=== PATIENT | male | born 1955 | race Caucasian/White ===

== ENCOUNTER 2022-01-02 11:04 | Observation (INO) | payer BC ==
[2022-01-02] MEDS ORDERED: NA CHLORIDE 0.9% 500 ML ONE (11:32)
[2022-01-02] MEDS ORDERED: METOPROLOL TARTRATE 5 MG/5 ML INJ IV ONE ×2 (11:32→15:50)
[2022-01-02 11:37] LABS: Absolute Lymphocytes (CBC) 2.7 K/uL (0.7-4.9); Hematocrit 40.9 % (39.6-49.0); Lymphocytes % 39.3 % (15.3-44.8); MPV 6.6 fL (7.6-11.3); RBC Red Blood Cell Count 4.89 M/uL (4.33-5.43)
[2022-01-02 11:48] LABS: Protime INR 0.97
[2022-01-02 11:58] LABS: Potassium 4.1 mmol/L (3.5-5.1); Troponin High Sensitivity 9.9 pg/mL (<58.9)
[2022-01-02] MEDS ORDERED: ENOXAPARIN 100 MG/ML SYR SQ ONE (12:03)
--- NOTE | 2022-01-02 12:05 | RAD REPORT ---
EXAM DESCRIPTION: Nikolas Single View01/02/2022 11:59 am CLINICAL HISTORY: Chest pain COMPARISON: none FINDINGS: The lungs appear clear of acute infiltrate. The heart is normal size IMPRESSION: No acute abnormalities displayed
--- NOTE | 2022-01-02 13:42 | EDPHYS ---
Physician Documentation [facility] Name: Deshawn Chavez Age: 66 yrs Sex: Male : 1955 Arrival Date: 01/02/2022 Time: 11:05 Bed 24 Private MD: Oumar Lieberman E ED Physician Charlie Wilson HPI: 01/02 11:26 This 66 yrs old Male presents to ER via Ambulatory with complaints of Chest Pain, pm1 Palpitations. 11:26 The patient or guardian reports chest pain that is located primarily in the mid-sternal pm1 area. Onset: yesterday. The pain does not radiate. Associated signs and symptoms: Pertinent positives: palpitations, shortness of breath. Duration: The patient or guardian reports a single episode, that is still ongoing. Modifying factors: The symptoms are alleviated by rest, the symptoms are aggravated by exertion. Severity of pain: in the emergency department the pain is unchanged. The patient has experienced a previous episode, approximately 30 years ago, and the symptoms today are exactly the same, as his diagnosis of atrial fibrillation. The patient has not recently seen a physician. Historical: - Allergies: 11:18 No Known Allergies; bp - Home Meds: 11:18 fenofibrate 40 mg oral tab 1 tab once daily [Active]; Coreg 12.5 mg Oral tab 1 tab 2 bp times per day [Active]; terazosin 5 mg oral cap 2 caps once daily [Active]; - PMHx: 11:18 Hypertensive disorder; Atrial fibrillation; bp - PSHx: 11:18 BACK SURGERY; bp - Immunization history:: Adult Immunizations up to date, Client reports having NOT received the Covid vaccine. - Social history:: Smoking status: Patient denies any tobacco usage or history of. Patient uses alcohol, occasionally. ROS: 11:26 Constitutional: Negative for fever, chills, and weight loss. pm1 11:26 Abdomen/GI: Negative for abdominal pain, nausea, vomiting, diarrhea, and constipation, Back: Negative for injury and pain, MS/Extremity: Negative for injury and deformity, Skin: Negative for injury, rash, and discoloration, Neuro: Negative for headache, weakness, numbness, tingling, and seizure. 11:26 Cardiovascular: Positive for chest pain, palpitations. 11:26 Respiratory: Positive for shortness of breath, on exertion. Negative for cough. 11:26 All other systems are negative. Exam: 11:26 Constitutional: This is a well developed, well nourished patient who is awake, alert, pm1 and in no acute distress. Head/Face: Normocephalic, atraumatic. 11:26 Skin: Warm, dry with normal turgor. Normal color with no rashes, no lesions, and no evidence of cellulitis. MS/ Extremity: Pulses equal, no cyanosis. Neurovascular intact. Full, normal range of motion. 11:26 Eyes: Exam is negative for acute changes, Extraocular movements: no acute changes. 11:26 ENT: Exam is negative for acute changes, Mouth: no acute changes, Lips: normal, moist, Oral mucosa: normal, pink and intact, moist. 11:26 Chest/axilla: Exam negative for acute changes, Inspection: normal, Palpation: no acute changes. 11:26 Cardiovascular: Rate: tachycardic, Rhythm: irregular, Pulses: no pulse deficits are appreciated, Heart sounds: normal, normal S1and S2, Edema: is not appreciated. 11:26 Respiratory: Exam negative for acute changes, the patient does not display signs of respiratory distress, Respirations: normal, Breath sounds: are clear throughout. 11:26 Neuro: Exam negative for acute changes, Orientation: is normal, Mentation: is normal, Motor: is normal, moves all fours. Vital Signs: 11:10 BP 152 / 87; Pulse 58; Resp 17; Temp 98; Pulse Ox 100% ; Weight 89.81 kg; Height 5 ft. bp 10 in. (177.80 cm); 12:31 BP 138 / 76; Pulse 85; Resp 17; Pulse Ox 99% ; bp 13:30 BP 148 / 97; Pulse 78; Resp 15; Pulse Ox 99% ; bp 14:30 BP 144 / 96; Pulse 97; Resp 20; Pulse Ox 100% ; bp 15:30 BP 136 / 97; Pulse 114; Resp 15; Pulse Ox 98% ; bp 11:10 Body Mass Index 28.41 (89.81 kg, 177.80 cm) bp MDM: 11:26 Patient medically screened. pm1 13:40 Data reviewed: vital signs. Data interpreted: Pulse oximetry: on room air is 99 %. pm1 Interpretation: normal. Counseling: I had a detailed discussion with the patient and/or guardian regarding: the historical points, exam findings, and any diagnostic results supporting the discharge/admit diagnosis, lab results, radiology results, the need for further work-up and treatment in the hospital. 01/02 11:21 Order name: Basic Metabolic Panel; Complete Time: 12:00 bp 01/02 11:21 Order name: CBC with Diff; Complete Time: 12:00 bp 01/02 11:21 Order name: PT-INR; Complete Time: 12:00 bp 01/02 11:21 Order name: Troponin HS; Complete Time: 12:00 bp 01/02 13:44 Order name: COVID-19 SARS RT PCR (Document "Date of Onset" if Symptomatic); Complete pm1 Time: 17:52 01/02 15:59 Order name: Magnesium EDAR 01/02 11:23 Order name: XRAY Chest (1 view); Complete Time: 12:07 pm1 01/02 15:59 Order name: Echo with Doppler EDMS 01/02 15:59 Order name: NT PRO-BNP EDAR 01/02 15:59 Order name: Phosphorus EDMS 01/02 15:59 Order name: T4 Free EDMS 01/02 15:59 Order name: Thyroid Stimulating Hormone EDMS 01/02 15:59 Order name: Urinalysis EDMS 01/02 15:59 Order name: Basic Metabolic Panel EDMS 01/02 15:59 Order name: Basic Metabolic Panel EDMS 01/02 15:59 Order name: CBC with Automated Diff EDMS 01/02 15:59 Order name: CBC with Automated Diff EDMS 01/02 15:59 Order name: Protime (+INR) EDMS 01/02 15:59 Order name: Protime (+INR) EDMS 01/02 11:21 Order name: EKG; Complete Time: 11:22 bp 01/02 11:21 Order name: Cardiac monitoring; Complete Time: 11:22 bp 01/02 11:21 Order name: EKG - Nurse/Tech; Complete Time: 11:22 bp 01/02 11:21 Order name: IV Saline Lock; Complete Time: 11:33 bp 01/02 11:21 Order name: Labs collected and sent; Complete Time: 11:33 bp 01/02 11:21 Order name: O2 Per Protocol; Complete Time: 11:22 bp 01/02 11:21 Order name: O2 Sat Monitoring; Complete Time: 11:21 bp 01/02 11:23 Order name: EKG; Complete Time: 11:24 pm1 01/02 11:23 Order name: Cardiac monitoring; Complete Time: 11:33 pm1 01/02 11:23 Order name: EKG - Nurse/Tech; Complete Time: 11:33 pm1 01/02 11:23 Order name: IV Saline Lock; Complete Time: 11:33 pm1 01/02 11:23 Order name: Labs collected and sent; Complete Time: 11:33 pm1 01/02 11:23 Order name: O2 Per Protocol; Complete Time: 11:33 pm1 01/02 11:23 Order name: O2 Sat Monitoring; Complete Time: 11:33 pm1 01/02 15:52 Order name: CONS Physician Consult EDAR 01/02 15:59 Order name: Heart Healthy EDMS Administered Medications: 11:30 Drug: NS 0.9% 500 ml Route: IV; Rate: bolus; Site: right forearm; bp 11:30 Drug: Metoprolol 5 mg Route: IVP; Site: right forearm; bp 11:53 Follow up: Response: No adverse reaction; Marked relief of symptoms bp 11:59 Drug: Lovenox (enoxaparin) 1 mg/kg Route: Sub-Q; Site: right lower abdomen; bp 14:32 Follow up: Response: No adverse reaction bp 15:47 Drug: Metoprolol 25 mg Route: PO; bp 15:47 Drug: Metoprolol 5 mg Route: IVP; Site: right antecubital; bp Disposition: 01/03 14:40 Co-signature as Attending Physician, Charlie Wilson MD. rn Disposition Summary: 01/02/22 13:41 Hospitalization Ordered Hospitalization Status: Observation pm1 Condition: Stable pm1 Problem: new pm1 Symptoms: have improved pm1 Bed/Room Type: Standard pm1 Provider: Fernando Rob(01/02/22 14:39) pm1 Location: Telemetry/MedSurg (observation)(01/02/22 18:43) ja1 Room Assignment: 210(01/02/22 18:43) ja1 Diagnosis - Chest pain, unspecified pm1 - Unspecified atrial fibrillation pm1 Forms: - Medication Reconciliation Form pm1 - SBAR form pm1 Signatures: Dispatcher [employer] EDAR Charlie Wilson MD MD rn Konrad Mxawell, BLACKTOP SPREADER BLACKTOP SPREADER pm1 Rob Saucedo, SHANA RN ja1 Michoacano Lindo, RN RN bp Corrections: (The following items were deleted from the chart) 01/02 11:27 11:22 Chest Single View+RAD.RAD.BRZ ordered. EDMS EDMS 11:55 11:24 BASIC METABOLIC PANEL+C.LAB.BRZ ordered. EDMS EDMS 11: 11:24 CBC+H.LAB.BRZ ordered. EDMS EDMS 11: 11:24 HEPATIC FUNCTION+C.LAB.BRZ ordered. EDMS EDMS 11: 11:24 MAGNESIUM+C.LAB.BRZ ordered. EDMS EDMS 11: 11:24 PROBNP+C.LAB.BRZ ordered. EDMS EDMS 11: 11:24 PROTIME (+INR)+COAG.LAB.BRZ ordered. EDMS EDMS 11: 11:24 Troponin High Sensitivity+C.LAB.BRZ ordered. EDMS EDMS 11: 11:24 THYROID STIMULAT HORMONE+C.LAB.BRZ ordered. EDMS EDMS 14:39 13:41 Teja Wilson pm1 pm1 16:58 13:41 Telemetry/MedSurg (observation) pm1 bp 16:58 13:41 pm1 bp 18:43 16:58 [facility] ER HOLD bp ja1 18:43 16:58 ERHOLD- bp ja1
--- NOTE | 2022-01-02 13:42 | ER ---
Nurse's Notes [facility] Name: Deshawn Chavez Age: 66 yrs Sex: Male : 1955 Arrival Date: 01/02/2022 Time: 11:05 Bed 24 Private MD: Oumar Lieberman E Diagnosis: Chest pain, unspecified;Unspecified atrial fibrillation Presentation: 01/02 11:10 Chief complaint: Patient states: SUBSTERNAL CHEST PRESSURE WITH PALPITATIONS, SOB AND bp NAUSEA SINCE LAST PM. Coronavirus screen: At this time, the client does not indicate any symptoms associated with coronavirus-19. Ebola Screen: No symptoms or risks identified at this time. Initial Sepsis Screen: Does the patient meet any 2 criteria? No. Patient's initial sepsis screen is negative. Does the patient have a suspected source of infection? No. Patient's initial sepsis screen is negative. Risk Assessment: Do you want to hurt yourself or someone else? Patient reports no desire to harm self or others. Onset of symptoms was January 01, 2022 at 19:00. 11:10 Method Of Arrival: Ambulatory bp 11:10 Acuity: JAIDEN 3 bp Triage Assessment: 11:10 General: Appears in no apparent distress. uncomfortable, Behavior is calm, cooperative, bp appropriate for age. Pain: Complains of pain in mid-sternal area. EENT: No deficits noted. Neuro: No deficits noted. Cardiovascular: Rhythm is atrial fibrillation. Respiratory: No deficits noted. GI: No signs and/or symptoms were reported involving the gastrointestinal system. : No signs and/or symptoms were reported regarding the genitourinary system. Derm: No deficits noted. Musculoskeletal: No deficits noted. Historical: - Allergies: 11:18 No Known Allergies; bp - Home Meds: 11:18 fenofibrate 40 mg oral tab 1 tab once daily [Active]; Coreg 12.5 mg Oral tab 1 tab 2 bp times per day [Active]; terazosin 5 mg oral cap 2 caps once daily [Active]; - PMHx: 11:18 Hypertensive disorder; Atrial fibrillation; bp - PSHx: 11:18 BACK SURGERY; bp - Immunization history:: Adult Immunizations up to date, Client reports having NOT received the Covid vaccine. - Social history:: Smoking status: Patient denies any tobacco usage or history of. Patient uses alcohol, occasionally. Screenin:10 Abuse screen: Denies threats or abuse. Denies injuries from another. Nutritional bp screening: No deficits noted. Tuberculosis screening: No symptoms or risk factors identified. Fall Risk None identified. Assessment: 11:10 General: SEE TRIAGE NOTE. bp 12:31 Reassessment: Patient and/or family updated on plan of care and expected duration. Pain bp level reassessed. Patient is alert, oriented x 3, equal unlabored respirations, skin warm/dry/pink. Cardiovascular: Rhythm is atrial fibrillation. 14:30 Reassessment: No changes from previously documented assessment. Patient and/or family bp updated on plan of care and expected duration. Pain level reassessed. ADMIT IN PROCESS. 14:39 Reassessment: : MILVIA CHAVEZ [phone]. bp 15:48 Reassessment: AFIB/RVR NOTED ON MONITOR, PROVIDER NOTIFIED. ADMIT IN PROCESS. bp Vital Signs: 11:10 BP 152 / 87; Pulse 58; Resp 17; Temp 98; Pulse Ox 100% ; Weight 89.81 kg; Height 5 ft. bp 10 in. (177.80 cm); 12:31 BP 138 / 76; Pulse 85; Resp 17; Pulse Ox 99% ; bp 13:30 BP 148 / 97; Pulse 78; Resp 15; Pulse Ox 99% ; bp 14:30 BP 144 / 96; Pulse 97; Resp 20; Pulse Ox 100% ; bp 15:30 BP 136 / 97; Pulse 114; Resp 15; Pulse Ox 98% ; bp 11:10 Body Mass Index 28.41 (89.81 kg, 177.80 cm) bp ED Course: 11:05 Patient arrived in ED. rg4 11:05 Oumar Lieberman MD is Private Physician. rg4 11:09 Michoacano Lindo, SHANA is Primary Nurse. bp 11:10 Arm band placed on. bp 11:10 Patient has correct armband on for positive identification. Bed in low position. Call bp light in reach. Side rails up X2. Adult w/ patient. Client placed on continuous cardiac and pulse oximetry monitoring. NIBP monitoring applied. 11:13 Charlie Wilson MD is Attending Physician. rn 11:13 [facility] Maxwell [facility] pm1 11:13 Charlie Wilson MD is Attending Physician. pm1 11:17 Triage completed. bp 11:31 Inserted saline lock: 20 gauge in right forearm, using aseptic technique. Blood bp collected. Patient maintains SpO2 saturation greater than 95% on room air. 12:01 XRAY Chest (1 view) In Process Unspecified. EDMS 13:41 Teja Wilson MD is Hospitalizing Provider. pm1 14:39 Fernando Rob MD is Hospitalizing Provider. pm1 Administered Medications: 11:30 Drug: NS 0.9% 500 ml Route: IV; Rate: bolus; Site: right forearm; bp 11:30 Drug: Metoprolol 5 mg Route: IVP; Site: right forearm; bp 11:53 Follow up: Response: No adverse reaction; Marked relief of symptoms bp 11:59 Drug: Lovenox (enoxaparin) 1 mg/kg Route: Sub-Q; Site: right lower abdomen; bp 14:32 Follow up: Response: No adverse reaction bp 15:47 Drug: Metoprolol 25 mg Route: PO; bp 15:47 Drug: Metoprolol 5 mg Route: IVP; Site: right antecubital; bp Medication: 11:10 VIS not applicable for this client. bp Outcome: 13:41 Decision to Hospitalize by Provider. pm1 20:53 Patient left the ED. wm Signatures: Dispatcher [employer] EDMS Charlie Wilson MD MD rn Marinas, Patrick, [employer] TECHNICIAN pm1 Lilli Martinez rg4 Michoacano Lindo, SHANA RN Sarita Lopez wm
[2022-01-02] MEDS ORDERED: METOPROLOL TAR 25 MG TAB ONE (15:50)
[2022-01-02] MEDS ORDERED: LABETALOL 20 MG/4ML SYRINGE IV PRN (15:52)
[2022-01-02] MEDS ORDERED: ONDANSETRON 4 MG/2 ML VIAL IV PRN (15:53)
[2022-01-02] MEDS ORDERED: ACETAMINOPHEN 500 MG TAB PO PRN (15:53)
[2022-01-02] MEDS ORDERED: MELATONIN 5 MG TABLET PO PRN (15:53)
[2022-01-02] MEDS ORDERED: HYDROCODONE/APAP 5/325 MG TAB PO PRN (16:00)
--- NOTE | 2022-01-02 16:08 | P.HP ---
Certification for Inpatient Patient admitted to: Inpatient With expected LOS: >2 Midnights Patient will require the following post-hospital care: None Practitioner: I am a practitioner with admitting privileges, knowledge of patient current condition, hospital course, and medical plan of care. Services: Services provided to patient in accordance with Admission requirements found in Title 42 Section 412.3 of the Code of Federal Regulations Patient History Date of Service: 01/02/22 Reason for admission: Afib with RVR History of Present Illness: Patient is a 66-year-old male with a past medical history significant for hypertension, A. fib, hyperlipidemia, who presents with complaint of palpitations onset yesterday. Patient also reports left chest wall pain rated as 3/10 in severity and described as pressure in quality. Patient reported associated signs and symptoms of weakness, fatigue, headache, nausea and shortness of breath. Patient denies any other signs or symptoms. Symptoms are aggravated or relieved by nothing. Patient decided to present to the hospital due to worsening symptoms. Allergies No Known Allergies Allergy (Verified 01/02/22 14:58) Home Medications: Carvedilol [Coreg] 12.5 mg PO BID 01/02/22 Fenofibrate 40 mg PO DAILY 01/02/22 Terazosin HCl 5 mg PO BID 01/02/22 - Past Medical/Surgical History Diabetic: No -: Afib -: HTN -: HLD Past Surgical History: Reviewed- Non-Contributory - Family History Family History: Reviewed- Non-Contributory - Social History Smoking Status: Never smoker Alcohol use: No CD- Drugs: No Caffeine use: Yes Place of Residence: Home Review of Systems General: Weakness, Other (Fatigue) Eyes: Unremarkable ENT: Unremarkable Respiratory: Shortness of Breath Cardiovascular: Chest Pain, Palpitations Gastrointestinal: Nausea Genitourinary: Unremarkable Musculoskeletal: Unremarkable Integumentary: Unremarkable Neurological: Weakness, Other (Headache ) Lymphatics: Unremarkable Physical Examination - Physical Exam General: Alert, Oriented x3, Cooperative HEENT: Normocephalic, PERRLA, Mucous membr. moist/pink Neck: Supple, 2+ carotid pulse no bruit, JVD not distended Respiratory: Clear to auscultation bilaterally, Normal air movement Cardiovascular: No edema, Normal pulses, Regular rate/rhythm, Normal S1 S2 Capillary refill: <2 Seconds Gastrointestinal: Normal bowel sounds, Soft and benign Musculoskeletal: No clubbing, No swelling, No contractures, No erythema Integumentary: No rashes, No breakdown, No tenderness/swelling Neurological: Normal speech, Normal strength at 5/5 x4 extr, Normal tone Lymphatics: No axilla or inguinal lymphadenopathy - Studies Laboratory Data (last 24 hrs) 01/02/22 11:27: PT 10.7, INR 0.97 01/02/22 11:27: WBC 6.9, Hgb 13.5 L, Hct 40.9, Plt Count 294 01/02/22 11:27: Sodium 137, Potassium 4.1, BUN 22 H, Creatinine 1.22, Glucose 119 H 01/02/22 11:23: PT Cancelled, INR Cancelled 01/02/22 11:23: WBC Cancelled, Hgb Cancelled, Hct Cancelled, Plt Count Cancelled 01/02/22 11:23: Sodium Cancelled, Potassium Cancelled, BUN Cancelled, Creatinine Cancelled, Glucose Cancelled, Magnesium Cancelled, Total Bilirubin Cancelled, AST Cancelled, ALT Cancelled, Alkaline Phosphatase Cancelled Assessment and Plan - Plan --A. fib with RVR. Patient given metoprolol IV in the ER. Rate controlled thereafter. Cardiology consulted. Echocardiogram pending. Telemetry to monitor for any malignant arrhythmia. Continue Lovenox subQ. We will await further recommendations from horse groomer. -- Hypertension. Poorly controlled. Continue BP meds and labetalol as needed. -- Elevated BNP. Echocardiogram pending. Further management per horse groomer. --Chest pain. We will trend troponin levels--so far negative. Telemetry to monitor for any significant arrhythmia. Further management per horse groomer. -- Palpitations. Telemetry to monitor for any significant arrhythmia. Further management per horse groomer. --CKD 2. Stable. We will continue to monitor renal functions. --DVT prophylaxis with Lovenox subQ. Discharge Plan: Home Plan to discharge in: 72 Hours - Advance Directives Does patient have a Living Will: No Does patient have a Durable POA for Healthcare: No - Code Status/Comfort Care Code Status Assessed: Yes Code Status: Full Code Physician Review: Patient Assessed, Agree with Above Assessment and Plan Critical Care: No
[2022-01-02 16:15] VITALS: BMI 28.4
[2022-01-02] MEDS: METOPROLOL TAR 25 MG TAB PO SCH (18:00)
[2022-01-02 20:22] LABS: Phosphorus 2.2 mg/dL (2.5-4.9); Thyroid Stimulating Hormone 1.13 uIU/mL (0.360-3.740)
[2022-01-02] MEDS: ENOXAPARIN 100 MG/ML SYR SQ SCH (20:32)
[2022-01-03 04:15] VITALS: TEMP 97.9
[2022-01-03 04:43] LABS: Urine Appearance Clear (Clear); Urine Bilirubin Negative (Negative); Urine Blood Negative (Negative); Urine Color Yellow (Yellow); Urine Glucose Negative (Negative); Urine Protein Negative (Negative); Urine Specific Gravity >=1.030 (1.005-1.030); Urine pH 6.5 (5.0-7.0)
[2022-01-03] MEDS: METOPROLOL TAR 25 MG TAB PO SCH (05:19)
[2022-01-03 05:34] LABS: Urine Microscopic Reflex NO UMIC
[2022-01-03 06:15] LABS: Absolute Lymphocytes (CBC) 2.4 K/uL (0.7-4.9); MPV 6.8 fL (7.6-11.3); RBC Red Blood Cell Count 4.97 M/uL (4.33-5.43)
[2022-01-03 06:16] LABS: Protime INR 1.01
[2022-01-03 06:37] LABS: Phosphorus 2.5 mg/dL (2.5-4.9)
[2022-01-03] MEDS: ENOXAPARIN 100 MG/ML SYR SQ SCH (09:04)
[2022-01-03 09:43] VITALS: BP 133/83
--- NOTE | 2022-01-03 11:08 | EKG ---
Test Date: 2022-01-02 Test Time: 11:14:08 Material Damage Appraiser: NISHANT MEASUREMENT RESULTS: Intervals: Rate: 100 AL: QRSD: 88 QT: 360 QTc: 464 [place]: P: AL: QRS: 22 T: 22 INTERPRETIVE STATEMENTS: Atrial fibrillation Nonspecific T wave abnormality Prolonged QT Abnormal ECG No previous ECG available for comparison Electronically Signed On 01-03-22 11:05:04 CDT by Renny Oropeza
--- NOTE | 2022-01-03 11:28 | ECHO ---
HEIGHT: 5 ft 10 in WEIGHT: 198 lb 0 oz DATE OF STUDY: 01/03/[address]: Jesu Epps 2-DIMENSIONAL: YES M.MODE: YES DOPPLER: YES COLOR FLOW: YES TDS: PORTABLE: YES DEFINITY: BUBBLE STUDY: DIAGNOSIS: ATRIAL FIBRILLATION WITH RAPID VENTRICULAR RESPONSE CARDIAC HISTORY: CATHERIZATION: NO SURGERY: NO PROSTHETIC VALVE: NO PACEMAKER: NO MEASUREMENTS (cm) DIASTOLIC (NORMALS) SYSTOLIC (NORMALS) IVSd 1.2 (0.6-1.2) LA Diam 3.0 (1.9-4.0) LVEF 64% LVIDd 3.7 (3.5-5.7) LVIDs 2.5 (2.0-3.5) %FS 34% LVPWd 1.2 (0.6-1.2) Ao Diam 2.6 (2.0-3.7) 2 DIMENSIONAL ASSESSMENT: RIGHT ATRIUM: NORMAL LEFT ATRIUM: NORMAL RIGHT VENTRICLE: NORMAL LEFT VENTRICLE: NORMAL TRICUSPID VALVE: NORMAL MITRAL VALVE: NORMAL PULMONIC VALVE: NORMAL AORTIC VALVE: NORMAL PERICARDIAL EFFUSION: NONE AORTIC ROOT: NORMAL LEFT VENTRICULAR WALL MOTION: DOPPLER/COLOR FLOW: COMMENTS: NORMAL 2-DIMENSIONAL ECHOCARDIOGRAM WITH DOPPLER. ATRIAL FIBRILLATION. NORMAL LEFT ATRIAL SIZE. NO THROMBUS. TECHNOLOGIST: LARRY OTT
[2022-01-03 11:30] VITALS: O2SAT 97
--- NOTE | 2022-01-03 13:08 | CON ---
Date of Consultation: 01/03/2022 Reason For Consultation: Atrial fibrillation. History Of Present Illness: Mr. Chavez is 66-year-old white male. Has a history of hypertension. Had atrial fibrillation about 30 years ago that has resolved. He has been taking Coreg, Tricor, and Hytrin for blood pressure and dyslipidemia. He has a positive family history of heart disease. Came in with palpitation, was found to be in atrial fibrillation with rapid response. Received IV beta-b lockers, labetalol as well as metoprolol. He is on Lovenox. His heart rate today is in t he 80s, but remained in atrial fibrillation. He is asymptomatic. Chest x-ray was negative. EKG galdino wed AFib. BNP was 2265. No chest pain reported. Denies nausea, vomiting, diaphoresis, PND, orthopn ea, pedal edema, or syncope. Denied any fever or chills. Past Medical History: As stated above. Allergies: NONE. Review of Systems: Negative. Social History: Negative for tobacco. Uses alcohol occasionally. Family History: Positive for heart disease in his father. Medications: Listed earlier. Physical Examination: General: No acute distress, atrial fibrillation, rate of 80. HEENT: Negative. Neck: Supple with no bruit. Chest: Clear. Cardiac: Revealed atrial fibrillation. No murmurs, gallops, or rubs. Abdomen: Benign. Extremities: Revealed no clubbing, cyanosis, or edema. Diagnostic Data: As stated earlier. Impression And Plan: Recurrent atrial fibrillation. I think we need to put him on high dose metopro lol 50 b.i.d., put him on Eliquis or Xarelto, get an echocardiogram, send him home today, and see me in the office in the next 2-3 days. If he remains in atrial fibrillation, we will plan to do a cardi oversion in the near future. He has an echocardiogram pending today. He can go home after his echo. Otherwise, he can continue his Tricor and Hytrin for his dyslipidemia and blood pressure. Case was discussed with Dr. Rob. BALJEET/ERNA Voice ID: [id number] Report ID: [id number]
== END 2022-01-03 11:40 | disposition home or self-care (01) ==
LOC: ER 11:04 → INTOOBSV 15:48 → ERHOLD 15:48 → 2ND 19:48
PROVIDERS: ADMIT Hospitalist; ATTEND Hospitalist
DX: I48.91 Unspecified atrial fibrillation (principal); I12.9 Hypertensive chronic kidney disease with stage 1 through stage 4 chronic kidney disease, or unspecified chronic kidney disease; N18.2 Chronic kidney disease, stage 2 (mild); R07.9 Chest pain, unspecified; R00.2 Palpitations; E78.5 Hyperlipidemia, unspecified; Z79.899 Other long term (current) drug therapy; Z28.310 Unvaccinated for COVID-19; Z20.822 Contact with and (suspected) exposure to COVID-19; Z82.49 Family history of ischemic heart disease and other diseases of the circulatory system
CPT/HCPCS: 93005; 93306; 85025 ×2; 80048 ×2; 36415 ×2; 83735; 84100 ×2; 85610 ×2; 84443; 81003; 84484; 84439; 83880; 71045; 96372; 99285; U0003; J1650 ×3; J7040; G0378 ×3

== ENCOUNTER 2022-01-12 06:30 | Day surgery (SDC) | payer BC ==
[2022-01-12] MEDS ORDERED: FENTANYL CITR 100 MCG/2 ML ONE (06:49)
[2022-01-12] MEDS ORDERED: METOPROLOL TARTRATE 5 MG/5 ML INJ IV ONE (06:49)
[2022-01-12] MEDS ORDERED: ATROPINE SULF 1 MG/10 ML SYR IV ONE (06:50)
[2022-01-12] MEDS ORDERED: MIDAZOLAM HCL 5 ML ONE (06:50)
[2022-01-12] MEDS ORDERED: MIDAZOLAM HCL 2 MG/2 ML INJ ONE ×2 (06:50→08:04)
[2022-01-12] MEDS ORDERED: NA CHLORIDE 0.9% 500 ML ONE (07:08)
[2022-01-12 09:43] VITALS: O2SAT 100
[2022-01-12 09:47] VITALS: BP 139/72
--- NOTE | 2022-01-12 20:00 | OP ---
Date of Procedure: 01/12/2022 Surgeon: Renny Oropeza MD Research Biostatistician: Ms. Meche Peters. The patient will go home after he wakes up and see me in the office in 2 weeks. The plan is to switc h his metoprolol to Multaq 400 mg b.i.d., continue the Eliquis. The case was discussed with his . Procedure: Direct current cardioversion. Indication: Atrial fibrillation. History Of Present Illness: Mr. Chavez is 66, has had recurrent atrial fibrillation, had failed met oprolol. He is on Eliquis. He is asymptomatic with his atrial fibrillation. Procedure In Detail: He was brought to the recovery room today as an outpatient. He was prepped in routine sterile fashion with the cardioverter pad in the AP and PA position. He had received a total of 14 mg of Versed IV push for sedation. He received 1 shock with synchronized 200 joules and he co nverted to sinus rhythm. There were no complications or blood loss. The patient tolerated the proce dure well. Total conscious sedation 30 minutes. NB/MODL Voice ID: [id number] Report ID: [id number]
--- NOTE | 2022-01-14 17:35 | EKG ---
Test Date: 2022-01-12 Test Time: 07:56:45 Pressure Vessel Inspector: MEASUREMENT RESULTS: Intervals: Rate: 68 [place]: 188 QRSD: 94 QT: 418 QTc: 444 [place]: P: 41 [place]: 188 QRS: -2 T: 18 INTERPRETIVE STATEMENTS: Normal sinus rhythm Early repolarization Normal ECG Compared to ECG 01/02/2022 11:14:08 Early repolarization now present Atrial fibrillation no longer present T-wave abnormality no longer present Prolonged QT interval no longer present Electronically Signed On 01-14-22 17:30:30 CDT by Tony Pulido
== END 2022-01-12 09:05 | disposition home or self-care (01) ==
LOC: CCL 06:30
DX: I48.91 Unspecified atrial fibrillation (principal); Z79.01 Long term (current) use of anticoagulants; Z20.822 Contact with and (suspected) exposure to COVID-19
CPT/HCPCS: 93005; 36415; 85730; 92960; U0003; J2250 ×3; J7040; J3010

== ENCOUNTER → 2022-08-18 | Day surgery (SDC) | payer BC ==
[~2022-08-18] MED LIST: ATROPINE SULF 1 MG/10 ML SYR IV ONE; FLUMAZENIL 0.1 MG/ML (5 mL VIAL) IV ONE; LIDOCAINE VISCOUS 2% SOLN 15 ML UDC ONE; MIDAZOLAM HCL 10 ML ONE; NA CHLORIDE 0.9% 500 ML ONE; PHENOL 1.4% ORAL SPRAY 180ML ONE
[2022-08-18 13:43] VITALS: BP 132/60; O2SAT 98
--- NOTE | 2022-08-18 15:41 | OP ---
Date of Procedure: 08/18/2022 Surgeon: KATARZYNA ASTORGA Procedure Performed: Transesophageal echocardiogram. Indication: Atrial fibrillation, post Watchman placement. Description Of Procedure: After risks, benefits, alternatives were explained, the patient agreed to procedure and signed informed consent. The patient was brought into the OR and then after proper carmine e-out, the back of throat was numbed using lidocaine and then gave 5 mg of Versed. Then, ZANE probe w as inserted without difficulty. ZANE was performed and then the probe was removed without complicatio ns. Conclusion: Successful ZANE with Watchman device in seated well with no leak or thrombus. SR/MODL Voice ID: [id number] Report ID: [id number]
--- NOTE | 2022-08-21 06:54 | TEE ---
TRANSESOPHAGEAL ECHOCARDIOGRAM REPORT CARDIOLOGY DEPARTMENT DATE OF STUDY: 08/18/2022 HEIGHT: 5"10" WEIGHT: 195 lbs DIAGNOSIS: STATUS POST WATCHMAN RECOVERY ROOM RN COMMENTS: ZANE CARDIAC HISTORY: CATHERIZATION: SURGERY: PROSTHETIC VALVE: PACEMAKER: 2 DIMENSIONAL ASSESSMENT: RIGHT ATRIUM: NORMAL LEFT ATRIUM: NORMAL RIGHT VENTRICLE: NORMAL LEFT VENTRICLE: NORMAL TRICUSPID VALVE: TRACE TRICUSPID REGURGITATION MITRAL VALVE: MILD MITRAL REGURGITATION PULMONIC VALVE: NORMAL AORTIC VALVE: CALCIFIED, NO AORTIC STENOSIS PERICARDIAL EFFUSION: NONE AORTIC ROOT: NORMAL EJECTION FRACTION: 55-60 % LEFT VENTRICULAR WALL MOTION: NORMAL DOPPLER/COLOR FLOW: SEE BELOW COMMENTS: 1. NORMAL LEFT VENTRICULAR EJECTION FRACTION 55-60% 2. NORMAL WALL MOTION 3. WATCHMAN DEVICE IS SEATED WELL, NO LEAK AND NO THROMBUS. TECHNOLOGIST: LARRY OTT
== END | disposition home or self-care (01) ==
LOC: EKG 08:00
PROVIDERS: ATTEND Internal Medicine
DX: I48.91 Unspecified atrial fibrillation (principal); Z98.890 Other specified postprocedural states; I10 Essential (primary) hypertension; E78.2 Mixed hyperlipidemia; Z87.891 Personal history of nicotine dependence; Z82.49 Family history of ischemic heart disease and other diseases of the circulatory system
CPT/HCPCS: 93312; C1893; J2250; J7040; J0461

== ENCOUNTER 2024-12-05 21:31 | Emergency (ER) | payer BC ==
--- OUTSIDE RECORDS SUMMARY | 2024-12-05 21:35 | XMS REPORT | Continuity of Care Document ---
Author Name Unknown Address [address] [facility] [address] [place] [address] Organization [facility] [place] Address [address] [place] [address] Care Team Providers Care Cord Splicer Name Role Phone Nahid Thomas Attending Clinician Unavailable Tony Pulido Admitting Clinician Unavailable Payers Payer Name Policy Type Policy Number Effective Date Expirati on Date Source Allergies, Adverse Reactions, Alerts Allergy Name Allergy Type Status Severity Reaction(s) Onset Date Inactive Date Treating Clinician Comments Source No Known Allergie s DA Active U 2021-07 00:00: 00 [facility] Procedures Procedure Date / Time Performed Performing Clinicia n Source [id number] 2022-07-05 00:00:00 [facility] [id number] 2022-07-05 00:00:00 [facility] Encounters Start Date/Time End Date/Time Encounter Type Admission Type Attending Clinicians Care Facility Care Department Encounter ID Source 2022-07-05 06:38:00 2022-07-06 13:30:00 Inpatient Nahid Maunel [facility] INTE.02 [id number] [facility] Results Test Description Test Time Test Comments Results Result Co mments Source [id number] 10:45:00* Test Item Value Reference Range Interpretation Comme nts ACT-ISTAT (test code = ACTI) 263 SEC 74-137 H Performed by cer joe wire photo operator news at [facility] BASIC METABOLIC [id number] 09:25:00* Test Item Value Reference Range Interpretation Comme nts SODIUM (test code = NA) 141 mEq/L 134-147 N POTASSIUM (test code = K) 4.5 mEq/L 3.4-5.0 N CHLORIDE (test code = CL) 106 mEq/L 100-108 N CARBON DIOXIDE (test code = CO2) 26 mEq/l 21-33 N ANION GAP (test code = GAP) 13 0-20 N GLUCOSE (test code = GLU) 103 mg/dL 70-110 N BLOOD UREA NITROGEN (test code = BUN) 13 mg/dL 7-18 N GLOMERULAR FILTRATION RATE (test code = GFR) 74.0 80-90 L The Glomerular Filtration Rate is a calculated parameterbased on serum Creatinine, patient age and sex. GFR valuesless than 60 mL/min/1.73 square meters are indicative ofChronic Kidney Disease. Values less than 15 mL/min/1.73square meters indicate Kidney failure. The calculation forGFR is based on the CKD-EPI (2020) calculation. This formulais race indifferent and is the recommended formula for GFRby the National Kidney Foundation for Adults.The GFR will not calculate if the sex is unknown or if thepatient's age is <18 years. CREATININE (test code = CREAT) 1.1 mg/dL 0.6-1.3 N CALCIUM (test code = CA) 8.8 mg/dL 8.0-10.5 N PROTHROMBIN [id number] 09:12:00* Test Item Value Reference Range Interpretation Comme nts PROTHROMBIN TIME PATIENT (test code = PTP) 12.1 SECONDS 9.3-12.9 N INTERNATIONAL NORMAL RATIO (test code = INR) 1.1 0.8-1.2 N TARGET INR BY INDICATION Indication INR1. Prophylaxis of venous thrombosis 2.0 - 3.0 (orthopedic surgery), Prophylaxis of venous thrombosis (other than high-risk surgery), Treatment of Deep Vein Thrombosis/Pulmonary Embolism, Prevention of systemic embolism - Tissue heart valves, Acute Myocardial Infarction (to prevent systemic embolism), Valvular heart disease, Atrial Fibrillation, Bileaflet mechanical valve in aortic position.2. Mechanical prosthetic valves (high risk), 2.5 - 3.5 Presence of Lupus Anticoagulant or Antiphospholipid Antibodies, Prevention of systemic embolism - Acute Myocardial Infarction (to prevent recurrent infarct). CBC W/AUTO [id number] 09:05:00* Test Item Value Reference Range Interpretation Comme nts WHITE BLOOD CELL (test code = WBC) 5.3 x10 3/uL 4.5-11.0 N RED BLOOD CELL (test code = RBC) 4.77 x10 6/uL 4.00-5.60 N HEMOGLOBIN (test code = HGB) 13.2 g/dL 12.5-16.9 N HEMATOCRIT (test code = HCT) 41.2 % 37.5-50.7 N MEAN CELL VOLUME (test code = MCV) 86.4 fL 81.0-99.0 N MEAN CELL HGB (test code = MCH) 27.7 pg 27.0-33.0 N MEAN CELL HGB CONCETRATION (test code = MCHC) 32.0 g/dL 33.0-37.0 L RED CELL DISTRIBUTION WIDTH CV (test code = RDW) 12.9 % 11.5-14.5 N RED CELL DISTRIBUTION WIDTH SD (test code = RDW-SD) 40.6 fL 37.0-54.0 N PLATELET COUNT (test code = PLT) 268 x10 3/uL 150-400 N MEAN PLATELET VOLUME (test c ode = MPV) 8.5 fL 7.0-9.0 N NEUTROPHIL % (test code = NT%) 46.4 % 56.0-77.0 L IMMATURE GRANULOCYTE % (test code = IG%) 0.2 % 0.0-2.0 N LYMPHOCYTE % (test code = LY%) 40.2 % 14.0-32.0 H MONOCYTE % (test code = MO%) 8.7 % 4.8-9.0 N EOSINOPHIL % (test code = EO%) 3.2 % 0.3-3.7 N BASOPHIL % (test code = BA%) 1.3 % 0.0-2.0 N NUCLEATED RBC % (test code = NRBC%) 0.0 % 0-0 N NEUTROPHIL # (test code = NT#) 2.44 x10 3/uL 2.0-7.6 N IMMATURE GRANULOCYTE # (test code = IG#) 0.01 x10 3/uL 0.00-0.03 N LYMPHOCYTE # (test code = LY#) 2.12 x10 3/uL 1.0-3.8 N MONOCYTE # (test code = MO#) 0.46 x10 3/uL 0.1-0.8 N EOSINOPHIL # (test code = EO#) 0.17 x10 3/uL 0.0-0.2 N BASOPHIL # (test code = BA#) 0.07 x10 3/uL 0.0-0.2 N NUCLEATED RBC # (test code = NRBC#) 0.00 x10 3/uL 0.0-0.1 N MANUAL DIFF REQUIRED (test c ode = MDIFF) NO - XR CHEST 1 [id number] 00:00:00 [facility] 1955 Sex: M FAX: Tony Bella MD [phone] [place]: St: ADM FAX: Amy Lay NP [phone] -- Name: OLAYINKA CHAVEZ [facility] : 1955 Age/S: 66/M [address] [place] [address] Unit #: [id number] Loc: [place] [address] Phys: Amy Lay NP Acct: [id number] Dis Date: Status: ADM IN PHONE #: [phone] Exam Date: 07/05/2022 1213 FAX #: [phone] Reason: S/P WATCHMAN EXAMS: CPT CODE: [id number] XR CHEST 1 V [id number] PROCEDURE INFORMATION: Exam: XR Chest Exam date and time: 2:13 PM Age: 66 years old Clinical indication: Device placement; Other: S/P watchman TECHNIQUE: Imaging protocol: Radiologic exam of the chest. Views: 1 view. COMPARISON: DX XR CHEST 2 V 06/23/2022 2:50 PM FINDINGS: Tubes, catheters and devices: Left atrial appendage occlusion device in place. Lungs: No focal airspace disease or evidence of pulmonary edema. Pleural spaces: No pleural effusion. No pneumothorax. Heart/Mediastinum: Normal appearance of the cardiomediastinal silhouette. Bones/joints: No acute abnormality. IMPRESSION: No acute cardiopulmonary abnormality. Electronically Signedby Shanika Jimenez on 07/05/2022 at 1341 Reported and signed by: Elliot Jimenez M.D. CC: Tony Pulido MD; Amy Lay NP Technologist: ANGELINE Rice) Trnscrd Date/Time/By: 07/05/2022 (0487) : By: [email or web address] Orig Print D/T: S: 07/05/2022 (2030) PAGE 1 Signed [id number] 16:09:00* Test Item Value Reference Range Interpretation Comme nts PREALBUMIN (test code = PREALB) 26.3 mg/dL 16.0-40.0 N BASIC METABOLIC [id number] 16:09:00* Test Item Value Reference Range Interpretation Comme nts SODIUM (test code = NA) 141 mEq/L 134-147 N POTASSIUM (test code = K) 4.1 mEq/L 3.4-5.0 N CHLORIDE (test code = CL) 107 mEq/L 100-108 N CARBON DIOXIDE (test code = CO2) 25 mEq/l 21-33 N ANION GAP (test code = GAP) 13 0-20 N GLUCOSE (test code = GLU) 116 mg/dL 70-110 H BLOOD UREA NITROGEN (test code = BUN) 16 mg/dL 7-18 N GLOMERULAR FILTRATION RATE (test code = GFR) 60.6 80-90 L The Glomerular Filtration Rate is a calculated parameterbased on serum Creatinine, patient age and sex. GFR valuesless than 60 mL/min/1.73 square meters are indicative ofChronic Kidney Disease. Values less than 15 mL/min/1.73square meters indicate Kidney failure. The calculation forGFR is based on the CKD-EPI (2020) calculation. This formulais race indifferent and is the recommended formula for GFRby the National Kidney Foundation for Adults.The GFR will not calculate if the sex is unknown or if thepatient's age is <18 years. CREATININE (test code = CREAT) 1.3 mg/dL 0.6-1.3 N CALCIUM (test code = CA) 9.2 mg/dL 8.0-10.5 N PROTHROMBIN [id number] 16:00:00* Test Item Value Reference Range Interpretation Comme nts PROTHROMBIN TIME PATIENT (test code = PTP) 12.8 SECONDS 9.3-12.9 N INTERNATIONAL NORMAL RATIO (test code = INR) 1.1 0.8-1.2 N TARGET INR BY INDICATION Indication INR1. Prophylaxis of venous thrombosis 2.0 - 3.0 (orthopedic surgery), Prophylaxis of venous thrombosis (other than high-risk surgery), Treatment of Deep Vein Thrombosis/Pulmonary Embolism, Prevention of systemic embolism - Tissue heart valves, Acute Myocardial Infarction (to prevent systemic embolism), Valvular heart disease, Atrial Fibrillation, Bileaflet mechanical valve in aortic position.2. Mechanical prosthetic valves (high risk), 2.5 - 3.5 Presence of Lupus Anticoagulant or Antiphospholipid Antibodies, Prevention of systemic embolism - Acute Myocardial Infarction (to prevent recurrent infarct). CBC W/AUTO [id number] 15:44:00* Test Item Value Reference Range Interpretation Comme nts WHITE BLOOD CELL (test code = WBC) 5.5 x10 3/uL 4.5-11.0 N RED BLOOD CELL (test code = RBC) 4.45 x10 6/uL 4.00-5.60 N HEMOGLOBIN (test code = HGB) 12.3 g/dL 12.5-16.9 L HEMATOCRIT (test code = HCT) 38.2 % 37.5-50.7 N MEAN CELL VOLUME (test code = MCV) 85.8 fL 81.0-99.0 N MEAN CELL HGB (test code = MCH) 27.6 pg 27.0-33.0 N MEAN CELL HGB CONCETRATION (test code = MCHC) 32.2 g/dL 33.0-37.0 L RED CELL DISTRIBUTION WIDTH CV (test code = RDW) 13.0 % 11.5-14.5 N RED CELL DISTRIBUTION WIDTH SD (test code = RDW-SD) 40.9 fL 37.0-54.0 N PLATELET COUNT (test code = PLT) 307 x10 3/uL 150-400 N MEAN PLATELET VOLUME (test c ode = MPV) 8.7 fL 7.0-9.0 N NEUTROPHIL % (test code = NT%) 41.4 % 56.0-77.0 L IMMATURE GRANULOCYTE % (test code = IG%) 0.2 % 0.0-2.0 N LYMPHOCYTE % (test code = LY%) 43.4 % 14.0-32.0 H MONOCYTE % (test code = MO%) 10.3 % 4.8-9.0 H EOSINOPHIL % (test code = EO%) 3.4 % 0.3-3.7 N BASOPHIL % (test code = BA%) 1.3 % 0.0-2.0 N NUCLEATED RBC % (test code = NRBC%) 0.0 % 0-0 N NEUTROPHIL # (test code = NT#) 2.28 x10 3/uL 2.0-7.6 N IMMATURE GRANULOCYTE # (test code = IG#) 0.01 x10 3/uL 0.00-0.03 N LYMPHOCYTE # (test code = LY#) 2.39 x10 3/uL 1.0-3.8 N MONOCYTE # (test code = MO#) 0.57 x10 3/uL 0.1-0.8 N EOSINOPHIL # (test code = EO#) 0.19 x10 3/uL 0.0-0.2 N BASOPHIL # (test code = BA#) 0.07 x10 3/uL 0.0-0.2 N NUCLEATED RBC # (test code = NRBC#) 0.00 x10 3/uL 0.0-0.1 N MANUAL DIFF REQUIRED (test c ode = MDIFF) NO - XR CHEST 2 [id number] 00:00:00 [facility] : 1955 Sex: M FAX: Tony Bella MD [phone] [place]: St: PRE Name: OLAYINKA CHAVEZ [facility] : 1955 Age/S: 66/M [address] [place] [address] Unit #: [id number] Loc: [place] [address] Phys: Tony Pulido MD Acct: [id number] Dis Date: Status: PRE IN PHONE #: [phone] Exam Date: 06/23/2022 1450 FAX #: [phone] Reason: PRE OP EXAMS: CPT CODE: [id number] XR CHEST 2 V [id number] PROCEDURE INFORMATION: Exam: XR Chest Exam date and time: 06/23/2022 2:50 PM Age: 66 years old Clinical indication: Other: Pre op TECHNIQUE: Imaging protocol: Radiologic exam of the chest. Views: 2 views. PA and Lateral COMPARISON: No relevant prior studies available. FINDINGS: Lungs: No acute airspace consolidation.Pleural spaces: No pleural effusion. No pneumothorax. Heart/Mediastinum: No cardiomegaly. Bones/joints: No acute fracture. IMPRESSION: No acute cardiopulmonary process. at 1554 Reported and signed by: Osmin Garcia M.D. CC: Tony Pulido MD Technologist: Destiny Levine RT(R) Trnscrd Date/Time/By: 06/23/2022 (1570) : By: [email or web address] Orig Print D/T: S: 06/23/2022 (0098) PAGE 1 Signed Report Notes Date/Time Note Provider Source 2022-08-06 20:55:00 [facility] ([facility]) Discharge Summary REPORT#:[id number] REPORT STATUS: Signed DATE:08/06/22 TIME: 2054 PATIENT: OLAYINKA CHAVEZ UNIT #: [id number] ROOM/BED: [place] [address] : [birth year] AGE: 66 SEX: M ATTEND: Nahid Thomas DO ADM AUTHOR: Nahid Thomas DO * ALL edits or amendments must be made on the electronic/computer document * PCP PCP Discharge to: home General Information Problem List/A P: 1. Afib 2. HTN (hypertension) 3. GERD (gastroesophageal reflux disease) Date of admission: Observation Start Date: Date of admission: 07/05/22 Discharge date: 07/06/22 Admission diagnosis: 1. Afib 2. HTN (hypertension) 3. GERD (gastroesophageal reflux disease Discharge diagnosis: 1. Afib 2. HTN (hypertension) 3. GERD (gastroesophageal reflux disease Hospital course: 66 WM WITH P.A.FIB, ON ELIQUIS/MULTAG, GERD, HTN, HLP. HE CAN'T AFFORD TO PAY FOR ELIQUIS SINCE NOT COVERED BY INSURANCE, THUS HE WANTS TO BE OFF OF ELIQUIs. H/O P.A.FIB - UNABLE TO PAY FOR ELIQUIS (NOT COVERED BY INSURANCE), PLAN FOR WATCHMAN, CARD SEEN HTN - SLIGHTLY HIGH, ONLY ON HYTRIN, CONSIDER BB/COREG BY CARD HLP - ON FENOFIBRATE, LABS PENDING DVT PX - ON ELIQUIS NOW post watchman placement- Echo negative; Dc home Pt. condition on discharge: stable Med Rec PCP PCP: PCP: No Primary or Family Physician Med Rec Discharge meds: Stop taking the following medications: DRONEDARONE (MULTAQ) 400 MG TAB 400 MILLIGRAM ORAL TWICE DAILY. Continue taking these medications: APIXABAN (ELIQUIS) 2.5 MG TAB 2.5 MILLIGRAM ORAL TWICE DAILY. TERAZOSIN (HYTRIN) 5 MG CAP 5 MILLIGRAM ORAL TWICE DAILY. FENOFIBRATE (TRICOR) 145 MG TAB 145 MILLIGRAM ORAL BEDTIME. [BEETS] 1 TABLET ORAL DAILY. [APPLE CIDER VINEGAR] 1 CAPSULE ORAL DAILY. OMEPRAZOLE ER (OMEPRAZOLE ER) 20 MG CAP.DR 20 MILLIGRAM ORAL DAILY. Start taking the following new medications: SOTALOL (BETAPACE) 80 MG TAB 40 MILLIGRAM ORAL TWICE DAILY. Days = 90 Qty = 180 Refills = 3 Objective VS/I O Last Documented: Result Date Time Pulse Ox 97 07/06 809 B/P 167/83 07/06 809 B/P Mean 0.0 07/06 809 O2 Delivery Room air 07/06 809 Temp 98.2 07/06 809 Pulse 56 07/06 809 Resp 26 07/06 809 PATIENT WEIGHT: Weight (lb): 195 Weight (oz): 6.54 Weight (kg): 88.636 General appearance: alert, awake, oriented Head/Eyes: EOMI, PERRLA Neck: non-tender, no JVD Cardiovascular: regular rate rhythm Respiratory: clear to auscultation, no distress GI: soft, non-tender Extremities: moves all, no edema-all extremities Neuro/SLOPE TENDER: alert, oriented X 3 Discharge Instructions PCP PCP: PCP: No Primary or Family Physician )( Discharge to: Home/Self Care Discharge Instructions Additional Discharge Routines: PCP Follow-Up, Link Machine Operator Follow-Up )( Diet: Cardiac )( Activity: As Tolerated Follow-up Appointments PCP follow up: PCP: No Primary or Family Physician PCP follow up timeframe: In 1-2 weeks Attending Physician: Attending Physician: Nahid Thomas DO Consulting provider 1: Provider 1: Tony Pulido MD Specialty: CardiologyInterventional Consult follow up timeframe: In 2-3 weeks Quality: Discharge Advanced Care Plan 65 or Older Discussed with: patient Current Medications Current medication review: I attest that the foregoing medication list in the medical record is true, accurate, and complete to the best of my knowledge. at 2057 RPT #:[id number] END OF REPORT [facility] 2022-07-06 16:35:00 [phone] [place] [address] PATIENT NAME: OLAYINKA CHAVEZ ADMIT DATE: 07/05/22 ACCOUNT NO: [id number] ROOM NO: [id number] AGE: 66 REPORT TYPE: eECHOCARDIOGRAM REPORT SEX: M ADMITTING PHYSICIAN:Tony Pulido MD ATTENDING PHYSICIAN:Nahid Thomas DO *[place] [address] Limited Transthoracic Echocardiogram Patient: Olayinka Chavez Study Date: 07/05/2022 BP: Location: [facility] URN: [id number] : 1955 Age: 66 Height: 70 in / 177.8 cm Gender: M Weight: 195 lb / 88.6 kg BMI/BSA: 28 kg/m 2 / 2.11 m 2 *Ordering Physician: * Amy Lay NP *Interpreting Physician: * Francie Medina MD *History Tutor: * Phyllis Pittman [facility] Indications: S/P WATCHMAN. Study data: Transthoracic echocardiogram, limited study. Limited 2D and limited spectral Doppler. Location: Bedside. Patient room number: PACU. Findings Left ventricle: Systolic function is normal. The estimated ejection fraction is 55-59%. Pericardium: A prominent pericardial fat pad is present. There is no pericardial effusion. Measurements PATIENT NAME: OLAYINKA CHAVEZ PERLA Left ventricle Value Ref MORRIS, LAX 4.7 cm 4.2 - 5.8 ESD, LAX 3.0 cm 2.5 - 4.0 ESD/bsa, LAX 1.4 cm/m 2 1.3 - 2.1 FS, LAX 37 % 25 - 43 PW, ED 1.1 cm 0.6 - 1.0 IVS/PW, ED 1.12 EF 66 % 52 - 72 Ventricular septum Value Ref IVS, ED 1.2 cm 0.6 - 1.0 Left atrium Value Ref AP dim, ES 3.17 cm 3.00 - 4.00 Conclusions Summary: Left ventricle: Systolic function is normal. The estimated ejection fraction is 55-59%. Prepared and electronically signed by Francie Medina MD 07/06/2022 16:35 at 1635 PATIENT NAME: OLAYINKA CHAVEZ [facility] 2022-07-06 09:47:00 [phone] [place] [address] PATIENT NAME: OLAYINKA CHAVEZ ADMIT DATE: 07/05/22 ACCOUNT NO: [id number] ROOM NO: [facility] AGE: 66 REPORT TYPE: eELECTROCARDIOGRAM REPORT SEX: M ADMITTING PHYSICIAN:Tony Pulido MD ATTENDING PHYSICIAN:Nahid Thomas DO Order: [id number] Test Reason : FOR CHECKING FOR QT INTERVALS POST ATARTING SOTALOL Test Date/Time Stamp: SunJul 06 2022 09:47:50 Blood Pressure : / mmHG Vent. Rate : 057 BPM Atrial Rate : 057 BPM P-R Int : 186 ms QRS Dur : 102 ms QT Int : 464 ms P-R-T Axes : 061 059 065 degrees QTc Int : 451 ms Sinus bradycardia Nonspecific ST and T wave abnormality Abnormal ECG When compared with ECG of 05-JUL-2022 10:55, Significant changes have occurred Confirmed by MD LEVINE GERARD ([id number]) on 07/10/2022 9:20:22 PM Referred By: Tony Pulido Confirmed by:PAUL LEVINE MD at 2120 PATIENT NAME: OLAYINKA CHAVEZ [facility] 2022-07-05 14:44:00 [facility] History Physical - Adult REPORT#:[id number] REPORT STATUS: Signed DATE:07/05/22 TIME: 1444 PATIENT: OLAYINKA CHAVEZ UNIT #: [id number] ROOM/BED: [place] [address] : [birth year] AGE: 66 SEX: M ATTEND: Nahid Thomas DO ADM AUTHOR: Nahid Thomas DO * ALL edits or amendments must be made on the electronic/computer document * History of Present Illness HPI Chief complaint: afib HPI: 66 WM WITH P.A.FIB, ON ELIQUIS/MULTAG, GERD, HTN, HLP. HE CAN'T AFFORD TO PAY FOR ELIQUIS SINCE NOT COVERED BY INSURANCE,; THUS HE WANTS TO BE OFF OF ELIQUI, THUS HE WANTS TO BE OFF OF ELIQUIS. He was recommended watchman device and underwent placement. He denies CP/SOB/COUGH/F/C/N/V/SICK CONTACT. 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 History Past medical history: Reports: Atrial fibrillation, GERD/gastritis, Hypertension. Additional surgical history: BACK AND NECK Additional family history: CAD Alcohol use: Denies EtOH use Drug use: Denies recreational drugs Smoking status for patients 13 years old or older: Former Smoker Packs per day: 3 Years smoked: 25 Pack years: 60 Additional social history: , WORKS A PUMP/HEAVY EQUIPMENT REPAIR, HAS NO LIVING WILL, HIS IS POA, HE DOESN'T KNOW HIS CODE STATUS. Medication/Allergy-Vaccine Hx Allergies: Coded Allergies: No Known Allergies (06/23/22) Review of Systems All systems rev neg: except as marked Physical Exam VS/I O Vital Signs: Date Time Temp Pulse Resp B/P B/P Pulse O2 O2 Flow FiO2 Mean Ox Delivery Rate 07/05 1051 97.3 85 18 156/70 96 Room air 07/05 0850 97.9 60 18 178/84 97 PATIENT WEIGHT: Weight (lb): 195 Weight (oz): 6.54 Weight (kg): 88.636 General appearance: alert, awake, oriented Head/Eyes: EOMI, PERRLA Neck: non-tender, no JVD Cardiovascular: regular rate rhythm, normal heart sounds Respiratory: clear to auscultation, no distress Abdomen/GI: active bowel sounds, soft Extremities: moves all Neuro/SLOPE TENDER: alert, oriented X 3 Results Findings/Data: Laboratory Tests: 07/05 07/05 07/05 1039 1028 0831 Chemistry Sodium (134 - 147 mEq/L) 141 Potassium (3.4 - 5.0 mEq/L) 4.5 Chloride (100 - 108 mEq/L) 106 Carbon Dioxide (21 - 33 mEq/l) 26 Anion Gap (0 - 20) 13 BUN (7 - 18 mg/dL) 13 Creatinine (0.6 - 1.3 mg/dL) 1.1 Glomerular Filtr Rate (80 - 90) 74.0 L Glucose (70 - 110 mg/dL) 103 Calcium (8.0 - 10.5 mg/dL) 8.8 Coagulation INR (0.8 - 1.2) 1.1 PT Patient/Control Mix (9.3 - 12.9 SECONDS) 12.1 Activated Coag Time (74 - 137 SEC) 275 H 263 H Hematology WBC (4.5 - 11.0 x10 3/uL) 5.3 RBC (4.00 - 5.60 x10 6/uL) 4.77 Hgb (12.5 - 16.9 g/dL) 13.2 Hct (37.5 - 50.7 %) 41.2 MCV (81.0 - 99.0 fL) 86.4 MCH (27.0 - 33.0 pg) 27.7 MCHC (33.0 - 37.0 g/dL) 32.0 L RDW (11.5 - 14.5 %) 12.9 Plt Count (150 - 400 x10 3/uL) 268 MPV (7.0 - 9.0 fL) 8.5 Neut % (Auto) (56.0 - 77.0 %) 46.4 L Lymph % (Auto) (14.0 - 32.0 %) 40.2 H [place] % (Auto) (4.8 - 9.0 %) 8.7 Eos % (Auto) (0.3 - 3.7 %) 3.2 Baso % (Auto) (0.0 - 2.0 %) 1.3 Neut # (Auto) (2.0 - 7.6 x10 3/uL) 2.44 Lymph # (Auto) (1.0 - 3.8 x10 3/uL) 2.12 [place] # (Auto) (0.1 - 0.8 x10 3/uL) 0.46 Eos # (Auto) (0.0 - 0.2 x10 3/uL) 0.17 Baso # (Auto) (0.0 - 0.2 x10 3/uL) 0.07 Abs Immat Gran (auto) (0.00 - 0.03 x10 3/uL) 0.01 Add Manual Diff NO Immature Gran % (0.0 - 2.0 %) 0.2 Nucleated RBC % (0 - 0 %) 0.0 Nucleated RBCs # (Man) (0.0 - 0.1 x10 3/uL) 0.00 Radiology data: Recent Impressions: RADIOLOGY - XR CHEST 1 V 07/05 1213 Report Impression - Status: SIGNED Entered: 07/05/2022 1341 IMPRESSION: No acute cardiopulmonary abnormality. Impression By: Ml - Elliot Jimenez M.D. Results: EKG personally reviewed Diagnosis, Assessment Plan Problem List/A P: 1. Afib 2. HTN (hypertension) 3. GERD (gastroesophageal reflux disease) Free Text DxA P Notes Free Text DxA P Notes: 66 WM WITH P.A.FIB, ON ELIQUIS/MULTAG, GERD, HTN, HLP. HE CAN'T AFFORD TO PAY FOR ELIQUIS SINCE NOT COVERED BY INSURANCE, THUS HE WANTS TO BE OFF OF ELIQUIs. H/O P.A.FIB - UNABLE TO PAY FOR ELIQUIS (NOT COVERED BY INSURANCE), PLAN FOR WATCHMAN, CARD SEEN HTN - SLIGHTLY HIGH, ONLY ON HYTRIN, CONSIDER BB/COREG BY CARD HLP - ON FENOFIBRATE, LABS PENDING DVT PX - ON ELIQUIS NOW post watchman placement- Echo negative; Dc home Quality: Gen Med Crit Care VTE Prophylaxis VTE prophylaxis initiated: yes Current Medications Current medication review: I attest that the foregoing medication list in the medical record is true, accurate, and complete to the best of my knowledge. Advanced Care Plan 65 or Older Discussed with: patient Discussion included: living will, power of litigation attorney associate, code status, HE DOESN'T KNOW at 2050 RPT #:[id number] END OF REPORT [facility] 2022-07-05 10:55:00 [id number] [place] [address] PATIENT NAME: OLAYINKA CHAVEZ ADMIT DATE: 07/05/22 ACCOUNT NO: [id number] ROOM NO: G.3360 AGE: 66 REPORT TYPE: eELECTROCARDIOGRAM REPORT SEX: M ADMITTING PHYSICIAN:Tony Pulido MD ATTENDING PHYSICIAN:Nahid Thomas DO Order: [id number] Test Reason : S/P WATCHMAN Test Date/Time Stamp: SunJul 05 2022 10:55:57 Blood Pressure : / mmHG Vent. Rate : 071 BPM Atrial Rate : 071 BPM P-R Int : 172 ms QRS Dur : 092 ms QT Int : 442 ms P-R-T Axes : 064 009 036 degrees QTc Int : 480 ms Normal sinus rhythm Prolonged QT Abnormal ECG When compared with ECG of 23-JUN-2022 14:45, No changes Confirmed by MD LEVINE GERARD ([id number]) on 07/05/2022 8:58:59 PM Referred By: Tony Pulido Confirmed by:PAUL LEVINE MD at [id number] PATIENT NAME: [facility]LAYINK[facility] 2022-07-05 10:43:00 [id number] [place] [address] PATIENT NAME: OLAYINKA CHAVEZ ADMIT DATE: 07/05/22 ACCOUNT NO: [id number] ROOM NO: [id number] AGE: 67 REPORT TYPE: CARDIAC CATHETERIZATION REPORT SEX: M ADMITTING PHYSICIAN:Tony Pulido MD ATTENDING PHYSICIAN:Nahid Thomas DO PROCEDURE DATE: 07/05/2022 PROCEDURE PERFORMED: Left atrial appendage closure using a 24 mm Watchman FLX closure device. INDICATION: Atrial fibrillation with high CHADS-VASc score and high risk for stroke and inability to tolerate anticoagulation. ACCESS: Right femoral vein. A 16-Chadian closed with [id number] suture. COMPLICATIONS: None. BLEEDING: Less than 20 mL. DESCRIPTION OF PROCEDURE: After risks, benefits and alternatives were explained, the patient agreed to proceed and signed informed consent. The patient was brought in to the cardiac catheterization laboratory, prepped and draped in the usual sterile fashion and I accessed the right femoral vein using micropuncture kit and ultrasound guidance and placed 8-Chadian Hewitt sheath and upgraded to 16-Chadian Cook sheath and gave partial dose of heparin, took SL1 sheath with a [place] needle inserted into the SVC and descended into the interatrial septum and then to the low mid position. Transseptal puncture was performed and then LA pressure was measured at 18 mmHg. Full dose of heparin was given to assure ACT level above 250 throughout the procedure. We then took a ProTrack wire into the left atrium, exchanged for the Watchman double curve sheath and then navigating a pigtail through into the appendage, then I telescoped the Watchman sheath over the pigtail into the appendage and appendage angiogram was performed and determined that the 24 mm device will be suitable for closure. The device was prepped and de-aired in the usual sterile fashion. Then, I removed the pigtail after good bleed back from the sheath and the Watchman delivery system was introduced with positive flush and secured in position and device then was deployed under fluoroscopy and ZANE guidance and PASS criteria were evaluated and all met. As such, device was released in position and subsequently removed the Watchman sheath and the Cook sheath and placed a [id number] suture for closure with good hemostasis. CONCLUSION: Successful left atrial appendage closure using a 24 mm Watchman FLX closure device. Dictated By: Tony Pulido MD Date Dictated: 07/05/2022 10:43:55 Date Transcribed: 07/05/2022 13:29:00 PATIENT NAME: OLAYINKA CHAVEZN /[facility] Receipt ID: [id number] Authenticated by Tony Pulido MD On 10/25/2022 02:26:40 PM at 0226 PATIENT NAME: OLAYINKA CHAVEZ [facility] 2022-06-23 15:41:00 [facility] ([facility]) Hospitalist History Physical REPORT#:[id number] REPORT STATUS: Signed DATE:06/23/22 TIME: 1541 PATIENT: OLAYINKA CHAVEZ UNIT #: [id number] ROOM/BED: : 55 AGE: 66 SEX: M ATTEND: Tony Pulido MD ADM AUTHOR: Jah Bustillo MD * ALL edits or amendments must be made on the electronic/computer document * History of Present Illness HPI Chief complaint: PREOP EVAL FOR WATCHMAN PCP: PCP: No Primary or Family Physician HPI: 66 WM WITH P.A.FIB, ON ELIQUIS/MULTAG, GERD, HTN, HLP. HE CAN'T AFFORD TO PAY FOR ELIQUIS SINCE NOT COVERED BY INSURANCE, THUS HE WANTS TO BE OFF OF ELIQUIS. OTHERWISE, HE'S STILL IN GOOD EHALTH AND HAS NO C/O CP/SOB/COUGH/F/C/N/V/SICK CONTACT. 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 NEVER HAD COVID VACCINE SINCE HE DOESN'T BELIEVE IN IT. Informant/historian: patient, prior records History Past Medical Surgical Hx Additional surgical history: BACK AND NECK Family History Additional family history: CAD Social History Alcohol use: Denies EtOH use Drug use: Denies recreational drugs Smoking status for patients 13 years old or older: Former Smoker Packs per day: 3 Years smoked: 25 Additional social history: , WORKS A PUMP/HEAVY EQUIPMENT REPAIR, HAS NO LIVING WILL, HIS IS ADOLFO, HE DOESN'T KNOW HIS CODE STATUS. Medication/Allergy-Vaccine Hx Medications: Home Medications: APIXABAN (ELIQUIS) 2.5 MG PO BID DRONEDARONE (MULTAQ) 400 MG PO BID TERAZOSIN (HYTRIN) 5 MG PO BID FENOFIBRATE (TRICOR) 145 MG PO BEDTIME [BEETS] 1 TAB PO DAILY [APPLE CIDER VINEGAR] 1 CAP PO DAILY OMEPRAZOLE ER 20 MG PO DAILY Allergies: Coded Allergies: No Known Allergies (06/23/22) Review of Systems Free Text ROS Notes Free Text ROS Notes: 12 POINT ROS WERE REVIEWED AND NEGATIVE. Physical Exam VS/I O: Patient Weight and BMI Weight (kg): 88.000 BMI: 27.8 General appearance: alert, awake, oriented Neck: no JVD Cardiovascular: normal heart sounds, regular rate rhythm Murmur: systolic 1/6 Respiratory: aerating well, clear to auscultation Abdomen: non-tender, normal bowel sounds, soft Extremities: no edema Musculoskeletal: normal inspection Neuro/SLOPE TENDER: alert, oriented X 3, normal speech, no motor deficits Skin: normal color Psychiatry: normal affect, normal judgment/insight Results Findings/Data: Laboratory Tests: 06/23 1410 Hematology WBC (4.5 - 11.0 x10 3/uL) 5.5 RBC (4.00 - 5.60 x10 6/uL) 4.45 Hgb (12.5 - 16.9 g/dL) 12.3 L Hct (37.5 - 50.7 %) 38.2 MCV (81.0 - 99.0 fL) 85.8 MCH (27.0 - 33.0 pg) 27.6 MCHC (33.0 - 37.0 g/dL) 32.2 L RDW (11.5 - 14.5 %) 13.0 Plt Count (150 - 400 x10 3/uL) 307 MPV (7.0 - 9.0 fL) 8.7 Neut % (Auto) (56.0 - 77.0 %) 41.4 L Lymph % (Auto) (14.0 - 32.0 %) 43.4 H Greenlee % (Auto) (4.8 - 9.0 %) 10.3 H Eos % (Auto) (0.3 - 3.7 %) 3.4 Baso % (Auto) (0.0 - 2.0 %) 1.3 Neut # (Auto) (2.0 - 7.6 x10 3/uL) 2.28 Lymph # (Auto) (1.0 - 3.8 x10 3/uL) 2.39 Greenlee # (Auto) (0.1 - 0.8 x10 3/uL) 0.57 Eos # (Auto) (0.0 - 0.2 x10 3/uL) 0.19 Baso # (Auto) (0.0 - 0.2 x10 3/uL) 0.07 Abs Immat Gran (auto) (0.00 - 0.03 x10 3/uL) 0.01 Add Manual Diff NO Immature Gran % (0.0 - 2.0 %) 0.2 Nucleated RBC % (0 - 0 %) 0.0 Nucleated RBCs # (Man) (0.0 - 0.1 x10 3/uL) 0.00 Laboratory Tests 06/23/22 1410: [Embedded Image Not Available] Diagnosis, Assessment Plan Free Text A P: H/O P.A.FIB - UNABLE TO PAY FOR [employer] (NOT COVERED BY INSURANCE), PLAN FOR WATCHMAN, CARD SEEN HTN - SLIGHTLY HIGH, ONLY ON HYTRIN, CONSIDER BB/COREG BY CARD HLP - ON FENOFIBRATE, LABS PENDING DVT PX - ON ELIQUIS NOW Quality: Gen Med Crit Care VTE Prophylaxis VTE prophylaxis initiated: yes Advanced Care Plan 65 or Older Discussed with: patient Discussion included: living will, power of litigation attorney associate, code status, HE DOESN'T KNOW at 1549 RPT #:[id number] END OF REPORT [facility] 2022-06-23 14:45:00 [id number] [place] [address] PATIENT NAME: OLAYINKA CHAVEZ ADMIT DATE: ACCOUNT NO: [id number] ROOM NO: AGE: 66 REPORT TYPE: eELECTROCARDIOGRAM REPORT SEX: M ADMITTING PHYSICIAN:Tony Pulido MD ATTENDING PHYSICIAN:Tony Pulido MD Order: [id number] Test Reason : A-FIB Test Date/Time Stamp: SunJun 23 2022 14:45:27 Blood Pressure : / mmHG Vent. Rate : 066 BPM Atrial Rate : 066 BPM P-R Int : 178 ms QRS Dur : 092 ms QT Int : 414 ms P-R-T Axes : 060 042 048 degrees QTc Int : 434 ms Normal sinus rhythm ST elevation, probably due to early repolarization Abnormal ECG PRE_OP Confirmed by MARYAN COX MD ([id number]) on 06/23/2022 4:56:26 PM Referred By: Tony Pulido Confirmed by:MARYAN COX MD at 8042 PATIENT NAME: OLAYINKA CHAVEZ [facility]
[2024-12-05] MEDS ORDERED: ONDANSETRON 4 MG/2 ML VIAL ONE (22:58)
[2024-12-05] MEDS ORDERED: MORPHINE 4 MG/ML SYR ONE (22:58)
[2024-12-05 23:58] LABS: Absolute Basophils 0.1 K/uL (0-0.5); Absolute Eosinophils 0.2 K/uL (0-0.5); Absolute Lymphocytes (CBC) 2.4 K/uL (0.7-4.9); Absolute Monocytes 0.6 K/uL (0.1-1.3); Absolute Neutrophil 5.1 K/uL (1.8-8.0); Basophils % 1.3 % (0-1.3); Eosinophils % 2.8 % (0-4.4); Hematocrit 36.5 % (39.6-49.0); Hemoglobin 12.4 g/dL (13.6-17.9); Lymphocytes % 28.4 % (15.3-44.8); MCHC 34.1 g/dL (32.0-36.0); MCV 85.1 fL (80-100); MPV 6.9 fL (7.6-11.3); Monocytes % 7.4 % (3.3-12.3); Neutrophils % 60.1 % (41.7-73.7); Nucleated Red Blood Cells % 0.1 % (0-0); Platelets 305 thou/uL (152-406); RBC Red Blood Cell Count 4.29 M/uL (4.33-5.43); Red Cell Distribution Width 13.7 % (12.1-15.2)
[2024-12-06 00:08] LABS: Albumin 3.9 g/dL (3.4-5.0); Albumin/Globulin Ratio 1.3 (1.1-1.8); Anion Gap 10.2 mEq/L (5.0-15.0); Bilirubin Total 0.3 mg/dL (0.2-1.0); Potassium 4.2 mEq/L (3.5-5.1); Protein, Total 6.9 g/dL (6.4-8.2)
--- NOTE | 2024-12-06 00:21 | RAD REPORT ---
EXAM DESCRIPTION: US SCROTUM CLINICAL HISTORY: Right testicle pain, . COMPARISON: None FINDINGS: There is no sonographic evidence of testicular torsion. The right testicle measured 3.2 x 2.1 x 1.9 c m. The left testicle measured 2.7 x 1.6 x 2.6 cm. There is a 4.4 mm right epididymal cyst. The left epididymis is within normal limits. There is no hydrocele. IMPRESSION: No sonographic evidence of testicular torsion. 4.4 mm right epididymal cyst. Electronically signed by: Liban Palma MD 12/06/2024 12:12 AM CDT RP Due to temporary technical issues with the [employer] reporting system, reports are being carlos d by the in-house radiologist without review as a courtesy to ensure prompt reporting the interpreting radiologist is fully responsible for the content of the report. Transcribed Date/Time: 12/06/2024 12:21 AM
[2024-12-06 01:03] LABS: Calcium Oxalate Crystals- Ur Few /HPF (None Seen); Specific Gravity > 1.030 (1.005-1.030); Sqamous Epithelial <5 /HPF (None Seen); Urine Bacteria None Seen /HPF (<20); Urine Bilirubin NEGATIVE (Negative); Urine Blood Trace (Negative); Urine Clarity Turbid (Clear); Urine Color Yellow (Yellow); Urine Culture Reflex Order NOT NEEDED; Urine Glucose NEGATIVE (Negative); Urine Ketones TRACE (Negative); Urine Microscopic Reflex YN ORDER UMIC; Urine Mucus Slight /HPF (None Seen); Urine Nitrite NEGATIVE (Negative); Urine Protein TRACE (Negative); Urine RBC None Seen /HPF (None Seen); Urine Urobilinogen 1+ (Normal); Urine WBC <5 /HPF (<5); Urine pH 5.5 (5.0-7.0)
--- NOTE | 2024-12-06 02:20 | RAD REPORT ---
PROCEDURE: CT Abdomen and Pelvis Without and With Intravenous Contrast CLINICAL INDICATION: The patient is 69 years old and is Male; Right flank pain. TECHNIQUE: Axial computed tomography images of the abdomen and pelvis without and with intravenous contrast. S agittal and coronal reformatted images were created and reviewed. This CT exam was performed using one or more of the following dose reduction techniques: automated exposure control, adjustmen t of the mA and/or kV according to patient size, and/or use of iterative reconstruction technique. COMPARISON: None. FINDINGS: LUNG BASES: Unremarkable No mass. No consolidation. MEDIASTINUM: Small hiatal hernia. ABDOMEN: LIVER: Unremarkable No mass. GALLBLADDER AND BILE DUCTS: Unremarkable No calcified stones. No ductal dilation. PANCREAS: Unremarkable No mass. No ductal dilation. SPLEEN: Unremarkable No splenomegaly. ADRENALS: Unremarkable No mass. KIDNEYS AND URETERS: 0.5 cm stone demonstrated at the right UVJ with mild right-sided hydronephrosi s and ureteral ectasia. Tiny nonobstructing stone in the inferior pole the right kidney. Simple renal cyst. No follow-up of this simple cyst is necessary. No additional obstructive intrarenal or intraureteral stones. STOMACH AND BOWEL: Colonic diverticulosis without evidence of acute diverticulitis. No obstruction. PELVIS: APPENDIX: No findings to suggest acute appendicitis. BLADDER: Unremarkable No mass. No stones. REPRODUCTIVE: Unremarkable as visualized. ABDOMEN and PELVIS: INTRAPERITONEAL SPACE: Unremarkable No free air. No significant fluid collection. BONES/JOINTS: No dislocation. No acute osseous abnormality. SOFT TISSUES: Small fat-containing bilateral inguinal hernias. Fat-containing umbilical hernia. VASCULATURE: Moderate calcified atherosclerosis of the abdominal aorta without aneurysmal dilatatio n. LYMPH NODES: Unremarkable No enlarged lymph nodes. OTHER FINDINGS: Mild diffuse disc osteophyte complexes at L4-5 and L5-S1 with no significant spinal canal or high-grade bony neuroforaminal stenosis. IMPRESSION: 1. 0.5 cm mildly obstructive stone demonstrated at the right UVJ. 2. Tiny nonobstructing stone in the inferior pole the right kidney. 3. Colonic diverticulosis without evidence of acute diverticulitis. 4. Small hiatal hernia. Electronically signed by: Ramses Michaels MD 12/06/2024 02:02 AM CDT RP Due to temporary technical issues with the [employer] reporting system, reports are being carlos d by the in-house radiologist without review as a courtesy to ensure prompt reporting the interpreting radiologist is fully responsible for the content of the report. Transcribed Date/Time: 12/06/2024 2:19 AM
--- NOTE | 2024-12-06 02:28 | EDPHYS ---
Physician Documentation [facility] Name: Deshawn Chavez Age: 69 yrs Sex: Male : 1955 Arrival Date: 12/05/2024 Time: 21:31 Bed 11 Private MD: ED Physician Tae Swanson HPI: 12/05 22:50 This 69 yrs old Male presents to ER via Ambulatory with complaints of Abdominal Pain, cp Groin Pain. 22:50 The patient presents with right groin pain and right testicle pain. Onset: The cp symptoms/episode began/occurred today. The symptoms radiate to the right flank, abdomen. Associated signs and symptoms: Pertinent positives: nausea, decreased urination, urinary urgency, Pertinent negatives: constipation, diarrhea, fever, testicular pain, vomiting. Severity of pain: in the emergency department the pain is unchanged despite home interventions. 22:50 The symptoms are described as constant. cp Historical: - Allergies: 22:38 No Known Allergies; iw - PMHx: 22:38 Atrial fibrillation; Hypertensive disorder; iw - PSHx: 22:38 back surgery; iw ROS: 22:55 Constitutional: Negative for body aches, chills, fever, poor PO intake, cp 22:55 Abdomen/GI: Positive for abdominal pain, right groin pain, Negative for nausea, cp vomiting, and diarrhea, constipation, 22:55 : Positive for small amounts, 22:55 Neuro: Negative for altered mental status, dizziness, headache, weakness, 22:55 All other systems are negative, Exam: 23:00 Constitutional: The patient appears in no acute distress, alert, awake, non-toxic, well cp developed, well nourished, 23:00 Head/Face: Normocephalic, atraumatic. cp 23:00 Eyes: Periorbital structures: appear normal, Conjunctiva: normal, no exudate, no injection, Sclera: no appreciated abnormality, Lids and lashes: appear normal, bilaterally, 23:00 Chest/axilla: Inspection: normal, 23:00 Cardiovascular: Rate: bradycardic, Rhythm: regular, 23:00 Respiratory: the patient does not display signs of respiratory distress, Respirations: normal, no use of accessory muscles, no retractions, labored breathing, is not present, Breath sounds: are clear throughout, 23:00 Abdomen/GI: Inspection: abdomen appears normal, Bowel sounds: active, all quadrants, Palpation: soft, in all quadrants, moderate abdominal tenderness, in the right lower quadrant and groin and right lower flank, rebound tenderness, is not appreciated, involuntary guarding, is not appreciated, 23:00 Back: pain, is absent, ROM is normal, 23:00 Neuro: Gait: is steady, 23:00 Skin: no rash present. Vital Signs: 22:39 BP 172 / 97; Pulse 57; Resp 16; Pulse Ox 97% on R/A; iw 23:18 BP 179 / 102; Pulse 60; Resp 18; Pulse Ox 99% on R/A; kl 12/06 01:48 BP 140 / 70; Pulse 66; Resp 18; Pulse Ox 97% on R/A; br2 02:53 BP 129 / 73; Pulse 55; Resp 18; Pulse Ox 99% ; br2 MDM: 12/05 22:35 Medical Screening Exam initiated 12/06 01:00 Differential diagnosis: appendicitis, non-specific abd pain, Pyelonephritis, Testicular cp Torsion, Ureterolithiasis, urinary tract infection, groin strain, hip fracture, kidney stone. :28 Data reviewed: vital signs, nurses notes, lab test result(s), radiologic studies, CT cp scan, and as a result, I will discharge patient. :28 I considered the following discharge prescriptions or medication management in the emergency department Medications were administered in the Emergency Department. See MAR. :28 Care significantly affected by the following chronic conditions: Hypertension. Counseling: I had a detailed discussion with the patient and/or guardian regarding the historical points, exam findings, and any diagnostic results supporting the discharge/admit diagnosis, lab results, radiology results, to return to the emergency department if symptoms worsen or persist or if there are any questions or concerns that arise at home. Response to treatment: the patient's symptoms have markedly improved after treatment, and as a result, I will discharge patient. 12/05 21: Order name: CBC with Diff; Complete Time: 00:07 12/05 21:43 Order name: CMP; Complete Time: 00:28 12/06 00:28 Interpretation: Normal except: BUN 26; CRE 1.49; GFR 50; ALK 39. 12/05 21: Order name: Lipase; Complete Time: 00:28 12/05 22:43 Order name: UA Rfx Brooks Cult if indicated; Complete Time: 01:13 cp 12/06 01:13 Interpretation: Normal except: UCLA Turbid; Urine SG > 1.030; UKET TRACE; UBLD Trace; cp UPROT TRACE; UUROB 1+. 12/05 22:43 Order name: US Scrotum Testicles cp 12/05 22:43 Order name: CT Abd/Pelvis- W/WO Contrast cp 12/05 22:43 Order name: IV Saline Lock; Complete Time: 23:15 cp 12/05 22:43 Order name: Labs collected and sent; Complete Time: 23:15 cp 12/06 00:07 Order name: Bladder Scanner; Complete Time: 00:16 cp Administered Medications: 12/05 23:15 Drug: morphine IVP or IV 4 mg IVP once over 4 mins Route: IVP; Infused Over: 4 mins; Site: left forearm; 12/06 00:15 Follow up: Response: No adverse reaction; Marked relief of symptoms 12/05 23:15 Drug: Ondansetron IVP 2 mg IVP once; over 2 minutes Route: IVP; Site: left forearm; 12/06 00:15 Follow up: Response: No adverse reaction 02:50 Drug: Ketorolac IVP 15 mg IVP once Route: IVP; Site: left antecubital; br2 02:51 Follow up: Response: Medication administered at discharge. br2 02:50 Drug: Flomax PO 0.4 mg PO once Route: PO; br2 02:51 Follow up: Response: Medication administered at discharge. br2 02:50 Drug: Hydrocodone-Acetaminophen PO (7.5 mg-325 mg) 1 tabs PO once; RASS on ADMIN: br2 Combtv4, Very Agttd3, Agttd2, Rstlss1, AlertClm0, Drwsy-1, Lt Sdtn-2, Mod Sdtn-3, Dp Sdtn-4, UnArsble-5 Route: PO; 02:52 Follow up: Response: Medication administered at discharge. br2 Disposition: 20:51 Chart complete. cp Disposition Summary: 12/06/24 02:28 Discharge Ordered Notes: Location: Home cp Problem: new cp Symptoms: have improved cp Condition: Stable cp Diagnosis - Calculus of kidney with calculus of ureter - right cp Followup: cp - With: Shakir Solano MD - When: 5 - 6 days - Reason: pain continues Discharge Instructions: - Discharge Summary Sheet cp - Kidney Stones cp - Renal Colic cp - Dietary Guidelines to Help Prevent Kidney Stones cp Forms: - Medication Reconciliation Form cp - Antibiotic Education cp - Prescription Opioid Use cp - Patient Portal Instructions cp - Leadership Thank You Letter cp Prescriptions: - Flomax 0.4 mg Oral capsule - take 1 capsule ORAL route daily; 7 capsule; Refills: 0, Product Selection cp Permitted - Zofran 4 mg Oral Tablet - take 1 tablet ORAL route every 12 hours As needed; 20 tablet; Refills: 0, cp Product Selection Permitted - Tylenol-Codeine #3 300mg-30mg Oral tablet - take 1 tablet ORAL route every 4 hours As needed; 16 tablet; Refills: 0, cp Product Selection Permitted Addendum: 12/08/2024 17:42 I was immediately available on-site in the Emergency Department for consultation in the m s3 care of the patient. Signatures: Dispatcher [employer] EDMS Seema Ling, Alisha Reynaga RN, RN RN iw Page, Corey, PA PA Tae Gage DO DO ms3 Coni Rodriguez, RN RN br2 Corrections: (The following items were deleted from the chart) 12/05 22:44 22:44 CBC+H.LAB.BRZ ordered. EDMS EDMS 22:44 22:44 COMPREHENSIVE METABOLIC PANEL+C.LAB.BRZ ordered. EDMS EDMS 22:44 22:44 LIPASE+C.LAB.BRZ ordered. EDMS EDMS 22:44 22:44 UA Rfx Brooks Cult if indicated+U.LAB.BRZ ordered. EDMS EDMS 22:44 22:44 Abdomen Pelvis W/Wo Con+CT.RAD.BRZ ordered. EDMS EDMS 12/06 20:53 12/05 22:50 The patient presents with right groin pain. cp cp 12/06 20:53 12/05 22:50 The symptoms radiate to abdomen, cp cp 12/06 20:53 12/05 22:50 Associated signs and symptoms: Pertinent positives: decreased urination, cp Pertinent negatives: constipation, diarrhea, fever, testicular pain, vomiting, cp 12/06 20:12/05 23:00 Eyes: Periorbital structures: appear normal, Conjunctiva: normal, no cp exudate, no injection, Sclera: no appreciated abnormality, Lids and lashes: appear normal, bilaterally, cp 12/07 19:12/05 23:00 Chest/axilla: Inspection: normal, cp cp 12/07 19:12/05 23:00 Respiratory: the patient does not display signs of respiratory distress, cp Respirations: normal, no use of accessory muscles, no retractions, labored breathing, is not present, cp 12/07 19:12/05 23:00 Abdomen/GI: Exam negative for discomfort, distension, guarding, Inspection: cp abdomen appears normal, cp 12/07 19: 02:28 Data reviewed: vital signs, nurses notes, lab test result(s), and as a result, [facility] will discharge patient, cp 01:00 Differential diagnosis: Pyelonephritis, Testicular Torsion, Ureterolithiasis, cp urinary tract infection, groin strain, hip fracture cp 21:14 12/05 22:50 Onset: The symptoms/episode began/occurred gradually, and became worse cp today, cp
--- NOTE | 2024-12-06 02:28 | ER ---
Nurse's Notes [facility] Name: Deshawn Chavez Age: 69 yrs Sex: Male : 1955 Arrival Date: 12/05/2024 Time: 21:31 Bed 11 Private MD: Diagnosis: Calculus of kidney with calculus of ureter-right Presentation: 12/05 22:37 Chief complaint: Patient states: pain in right groin radiating up to RLQ , started iw today, reports feeling like he has to urinate but only a small amount comes out. Coronavirus screen: At this time, the client does not indicate any symptoms associated with coronavirus-19. Ebola Screen: No symptoms or risks identified at this time. Initial Sepsis Screen: Does the patient meet any 2 criteria? Yes Does the patient have a suspected source of infection? No. Patient's initial sepsis screen is negative. Risk Assessment: Do you want to hurt yourself or someone else?. Onset of symptoms was December 05, 2024. 22:37 Method Of Arrival: Ambulatory iw 22:37 Acuity: JAIDEN 3 iw Historical: - Allergies: 22:38 No Known Allergies; iw - PMHx: 22:38 Atrial fibrillation; Hypertensive disorder; iw - PSHx: 22:38 back surgery; iw Screenin:16 [facility] ED Fall Risk Assessment (Adult) History of falling in the last 3 months, kl including since admission No falls in past 3 months (0 pts) Confusion or Disorientation No (0 pts) Intoxicated or Sedated No (0 pts) Impaired Gait No (0 pts) Mobility Assist Device Used No (0 pt) Altered Elimination No (0 pt) Score/Fall Risk Level 0 - 2 = Low Risk Oriented to surroundings, Maintained a safe environment. Abuse screen: Denies threats or abuse. Nutritional screening: No deficits noted. Tuberculosis screening: No symptoms or risk factors identified. Assessment: 23:16 Pain: Complains of pain in suprapubic area Pain radiates to groin Pain currently is 4 kl out of 10 on a pain scale. GI: Bowel sounds present X 4 quads. Abd is soft and non tender Reports. : Reports urinary frequency. 12/06 00:21 Reassessment: Patient appears in no apparent distress at this time. Patient and/or kl family updated on plan of care and expected duration. Pain level reassessed. 02:51 Reassessment: Patient and/or family updated on plan of care and expected duration. Pain br2 level reassessed. Patient is alert, oriented x 3, equal unlabored respirations, skin warm/dry/pink. Patient states feeling better. Patient states symptoms have improved. Vital Signs: 12/05 22:39 BP 172 / 97; Pulse 57; Resp 16; Pulse Ox 97% on R/A; iw 23:18 BP 179 / 102; Pulse 60; Resp 18; Pulse Ox 99% on R/A; kl 12/06 01:48 BP 140 / 70; Pulse 66; Resp 18; Pulse Ox 97% on R/A; br2 02:53 BP 129 / 73; Pulse 55; Resp 18; Pulse Ox 99% ; br2 ED Course: 12/05 21:46 Patient arrived in ED. iw 21:59 Peewee Martínez PA is PHCP. cp 21:59 Tae Swanson DO is Attending Physician. cp 22:38 Triage completed. iw 23:05 US Scrotum Testicles In Process Unspecified. EDMS 23:15 CBC with Diff Sent. kl 23:15 CMP Sent. kl 23:15 Lipase Sent. kl 23:16 Inserted saline lock: 20 gauge in right forearm, using aseptic technique. Blood kl collected. Flushed with 10 mL NS. 12/06 00:16 Bladder scan completed. 49 ml. kl 00:43 CT Abd/Pelvis- W/WO Contrast In Process Unspecified. EDMS 02:27 Shakir Solano MD is Referral Physician. cp 02:52 IV discontinued, intact, bleeding controlled, No redness/swelling at site. Pressure br2 dressing applied. Administered Medications: 12/05 23:15 Drug: morphine IVP or IV 4 mg IVP once over 4 mins Route: IVP; Infused Over: 4 mins; kl Site: left forearm; 12/06 00:15 Follow up: Response: No adverse reaction; Marked relief of symptoms kl 12/05 23:15 Drug: Ondansetron IVP 2 mg IVP once; over 2 minutes Route: IVP; Site: left forearm; kl 12/06 00:15 Follow up: Response: No adverse reaction kl 02:50 Drug: Ketorolac IVP 15 mg IVP once Route: IVP; Site: left antecubital; br2 02:51 Follow up: Response: Medication administered at discharge. br2 02:50 Drug: Flomax PO 0.4 mg PO once Route: PO; br2 02:51 Follow up: Response: Medication administered at discharge. br2 02:50 Drug: Hydrocodone-Acetaminophen PO (7.5 mg-325 mg) 1 tabs PO once; RASS on ADMIN: br2 Combtv4, Very Agttd3, Agttd2, Rstlss1, AlertClm0, Drwsy-1, Lt Sdtn-2, Mod Sdtn-3, Dp Sdtn-4, UnArsble-5 Route: PO; 02:52 Follow up: Response: Medication administered at discharge. br2 Outcome: 02:28 Discharge ordered by MD. cp 02:52 Discharged to home ambulatory, br2 02:52 Condition: stable 02:52 Discharge instructions given to patient, Instructed on discharge instructions, follow up and referral plans. Demonstrated understanding of instructions, follow-up care, medications, Prescriptions given X 3, 02:52 Patient left the ED. br2 Signatures: Dispatcher [employer] EDMS eSema Ling, Alisha Reynaga RN, RN RN iw Page, Corey, PA PA Coni Botello RN RN br2
[2024-12-06] MEDS ORDERED: TAMSULOSIN 0.4 MG SR CAP ONE (02:41)
[2024-12-06] MEDS ORDERED: KETOROLAC 30 MG/ML INJ ONE (02:42)
[2024-12-06] MEDS ORDERED: HYDROCODONE/APAP 7.5/325 MG TAB ONE (02:42)
[2024-12-06 03:02] VITALS: BP 140/70; O2SAT 97
== END 2024-12-06 02:52 | disposition home or self-care (01) ==
LOC: ER 21:31
DX: N20.2 Calculus of kidney with calculus of ureter (principal)
CPT/HCPCS: 85025; 81001; 36415; 83690; 80053; 74178; 76870; 99284; Q9967; J2405